=== PATIENT | male | born 1940 | race Caucasian/White ===

== ENCOUNTER 2022-10-07 09:03 | Emergency (ER) | payer OTHER ==
[~2022-10-07] VITALS: Ht 170.2 cm; Wt 62.6 kg
[~2022-10-07 09:03] MED LIST: CIPR250 PO; Calcium + Vita1 EACH PO; Macrobid 100 M100 MG PO; OXYC5 PO; Sulfamethoxazo1 EAC4 PO; TAMS.4ER PO
[2022-10-07 09:33] VITALS: BP 126/66
== END 2022-10-07 10:06 | disposition home or self-care (01) ==
LOC: ER 09:03
DX: Z46.6 Encounter for fitting and adjustment of urinary device (principal); F17.210 Nicotine dependence, cigarettes, uncomplicated; Z88.8 Allergy status to other drugs, medicaments and biological substances
CPT/HCPCS: 99282